=== PATIENT | male | born 1950 | race Caucasian/White ===

== ENCOUNTER → 2017-07-01 | Outpatient (CLI) | payer OTHER, MEDICARE | END | disposition home or self-care (01) | LOC: CDC 10:16 | DX: Z01.810 Encounter for preprocedural cardiovascular examination (principal); K40.90 Unilateral inguinal hernia, without obstruction or gangrene, not specified as recurrent | CPT/HCPCS: 93000 ==

== ENCOUNTER 2017-07-11 09:11 | Day surgery (SDC) | payer OTHER ==
[~2017-07-11] VITALS: Ht 185.4 cm; Wt 90.7 kg
[~2017-07-11 09:11] MED LIST: ADVAIR 250/501 DISK IH; ATORVASTATIN CA20 MG PO; DUONEB 2.5-0.5 M3 ML AEROSOL; PHILLIPS' COLO1 EACH PO; VENTOLIN HFA18 GM IH
[2017-07-11 10:25] VITALS: BP 170/89
[2017-07-11] MEDS ORDERED: NORCO 5/3251 TABLET PO (12:23)
[2017-07-11 13:26] VITALS: BP 120/66
[2017-07-11 13:55] VITALS: BP 170/87
[2017-07-11 14:52] VITALS: BP 163/76
== END 2017-07-11 15:00 | disposition home or self-care (01) ==
LOC: SDC
DX: K40.90 Unilateral inguinal hernia, without obstruction or gangrene, not specified as recurrent (principal); D17.6 Benign lipomatous neoplasm of spermatic cord; J45.909 Unspecified asthma, uncomplicated; E78.5 Hyperlipidemia, unspecified; I34.1 Nonrheumatic mitral (valve) prolapse; Z86.010 Personal history of colon polyps; Z80.1 Family history of malignant neoplasm of trachea, bronchus and lung; Z82.61 Family history of arthritis; Z80.42 Family history of malignant neoplasm of prostate
CPT/HCPCS: 88304; C1781; J0690; J1100; J1885; J2405; Q0175; S0020

== ENCOUNTER 2017-09-11 06:21 | Day surgery (SDC) | payer OTHER ==
[~2017-09-11] VITALS: Ht 188 cm; Wt 91.5 kg
[~2017-09-11 06:21] MED LIST changes: +NORCO 5/3251 TABLET PO
[2017-09-11 07:04] LABS: HEMATOCRIT 40.6 % (38.0-50.0); HEMOGLOBIN 14.2 G/DL (12.5-16.6); MCH 29.6 PG (29.0-34.0); MCV 84.8 FL (86-99); PLATELET COUNT 198 K/uL (156-360); RBC DIS.WIDTH-CV 13.2 % (11.8-14.6); RBC DIS.WIDTH-SD 41.1 % (39-53); RED BLOOD COUNT 4.79 M/uL (4.00-5.50); WHITE BLOOD COUNT 10.5 K/uL (4.1-10.2)
[2017-09-11 07:18] LABS: APPEARANCE SL.HAZY ((CLEAR)); BILIRUBIN NEGATIVE; BLOOD LARGE; COLOR YELLOW ((YELLOW)); GLUCOSE (STRIP) NEGATIVE; KETONES NEGATIVE; LEUKOCYTES MODERATE; NITRITE NEGATIVE; PROTEIN (STRIP) 100; SPECIFIC GRAVITY 1.017 (1.000-1.030); UROBILINOGEN 0.2 MG/DL (0.2-1.0)
[2017-09-11 07:40] LABS: ALBUMIN 3.7 G/DL (3.2-4.8); ALKALINE PHOSPHATASE 92 IU/L (3-129); ALT (GPT) 19 IU/L (3-49); AST (GOT) 19 IU/L (2-34); CHLORIDE 101 MEQ/L (99-109); CREATININE 1.3 MG/DL (0.6-1.3); GFR ESTIMATE (CALCULATED) 59 mL/min/ (58.99-99999); GLUCOSE 93 mg/dL (70-99); SODIUM 135 MEQ/L (136-147); TOTAL BILIRUBIN 1.5 MG/DL (0.0-1.0); TOTAL PROTEIN 6.3 G/DL (6.4-8.3); UREA NITROGEN (BUN) 18 mg/dL (9-23)
[2017-09-11 07:44] LABS: BACTERIA NONE SEEN /HPF; CALCIUM OXALATE CRYSTALS 1+ /HPF; EPITHELIAL CELLS RARE /HPF; HYALINE CASTS 0-5 /LPF; MUCUS TRACE /LPF; RED BLOOD CELLS TNTC /HPF (0-5); UCUL ADDED? YES; WHITE BLOOD CELLS 20-30 /HPF (0-5)
[2017-09-11] MEDS ORDERED: TYLENOL ARTHRI650 MG PO (10:24)
[2017-09-11] MEDS ORDERED: PYRIDIUM200 MG PO (15:06)
[2017-09-11] MEDS ORDERED: CIPRO500 MG PO (15:06)
[2017-09-11] MEDS ORDERED: COLACE100 MG PO (15:06)
[2017-09-11] MEDS ORDERED: FLOMAX0.4 MG PO (15:06)
[2017-09-11] MEDS ORDERED: ENDOCET 5-3251 EACH PO (15:06)
[2017-09-11 15:35] VITALS: BP 159/77
== END 2017-09-11 18:30 | disposition home or self-care (01) ==
LOC: EME 06:21 → SDC 13:39 → 2SOUTH 14:51 → ENRESERV 14:53 → 2EAST 15:51
PROVIDERS: Nurse Practitioner Family; Urology
DX: N13.2 Hydronephrosis with renal and ureteral calculous obstruction (principal); J45.909 Unspecified asthma, uncomplicated
CPT/HCPCS: 74176; 80053; 81003; 82365 90; 85027; 87086; 99281; 99285; C1726; C1769; C1876; G0378; J0690; J1100; J1885; J2405; J3010